=== PATIENT | male | born 1995 | race Caucasian/White ===

== ENCOUNTER 2022-03-21 18:09 | Emergency (ER) | payer SELFPAY ==
[2022-03-21 18:10] VITALS: BP 143/77; PULSE 88; RESP 18; TEMP 37.1; O2SAT 100
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
[2022-03-21 19:20] VITALS: RESP 18; O2SAT 95
[2022-03-21] MEDS: ondansetron 2 mg/ML SDV 2 mL 4 MG IVP (19:20)
[2022-03-21] MEDS: morphine 4 mg/mL SDV 1 mL IVP ×2 (19:20→22:29)
[2022-03-21] MEDS: tetanus-dipt-pertussis 0.5 mL SDV IM (19:22)
[2022-03-21 19:30] LABS: Basophils # 0.1 10^3/uL (0.0-0.1); Basophils % 0.6 %; Eosinophils # 0.1 10^3/uL (0.0-0.8); Eosinophils % 0.9 %; Hematocrit 44.3 % (42.0-52.0); Hemoglobin 15.2 g/dL (11.7-16.6); Lymphocytes # 1.7 10^3/uL (0.8-4.8); Lymphocytes % 13.1 %; Mean Corpuscular HGB Conc 34.3 g/dL (30.0-36.0); Mean Corpuscular Hemoglobin 32.1 pg (28.0-34.0); Mean Corpuscular Volume 93.7 fl (80-94); Mean Platelet Volume 9.3 fL (7.4-10.4); Monocytes # 1.1 10^3/uL (0.2-0.9); Monocytes % 8.9 %; Neutrophils # 9.49 10^3/uL (1.8-7.7); Neutrophils % 75.3 %; Nucleated Red Blood Cells % 0 %; Platelet Count 276 10^3/cmm (130-400); Red Blood Count 4.73 10^6/uL (4.1-5.3); Red Cell Distribution Width 11.8 % (12.1-15.1); White Blood Count 12.6 10^3/uL (4.0-10.0)
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
[2022-03-21 19:54] LABS: Alanine Aminotransferase 297 U/L (0-41); Albumin Level 4.5 g/dL (3.5-5.2); Alkaline Phosphatase 86 U/L (40-130); Anion Gap 19.8 (5-19); Aspartate Amino Transferase 210 U/L (0-40); Blood Urea Nitrogen 16 mg/dL (6-20); Carbon Dioxide 21 mmol/L (22-29); Chloride 97 mmol/L (98-107); Globulin 3.6 g/dL (1.3-4.6); Glucose 93 mg/dL (65-115); Osmolality Calculated 279 mOsm/kg (285-295); Potassium 3.8 mmol/L (3.5-5.1); Sodium 134 mmol/L (136-145); Total Bilirubin 0.4 mg/dL (0.15-1.2); Total Protein 8.1 g/dL (6.6-8.7)
[2022-03-21 20:33] VITALS: BP 150/92; PULSE 112; RESP 17; O2SAT 95
[2022-03-21 22:23] VITALS: BP 149/78; PULSE 115; RESP 17; O2SAT 94
[2022-03-21 22:29] VITALS: RESP 18; O2SAT 98
== END 2022-03-21 23:10 ==
PROVIDERS: Emergency Provider Emergency Medicine
DX: S32.010A Wedge compression fracture of first lumbar vertebra, initial encounter for closed fracture (principal); F17.210 Nicotine dependence, cigarettes, uncomplicated; V47.5XXA Car driver injured in collision with fixed or stationary object in traffic accident, initial encounter; Z23 Encounter for immunization
CPT/HCPCS: 70450; 70486; 71260; 72125; 72131; 74177; 80053; 85025; 90471; 90715; 96374; 96375; 96376; 99285; J2270; J2405; Q9967